=== PATIENT | female | born 1955 | race Caucasian/White ===

== ENCOUNTER 2018-10-23 09:01 | Inpatient (IN) | payer BC ==
[2018-10-23] MEDS ORDERED: NS 0.9% 1000 ML** 1,000 ML IV ONE (09:11)
--- NOTE | 2018-10-23 09:13 | ED ---
Complex/Multi-Sys Presentation - History Of Current Complaint Chief Complaint: EDFever Time Seen by Provider: 10/23/18 09:10 Hx Obtained From: Patient - Allergies/Home Medications Allergies/Adverse Reactions: Allergies Allergy/AdvReac Type Severity Reaction Status Date / Time enviromental Allergy Difficulty Uncoded 07/13/18 09:57 Breathing/Wheezing PMH/Surg Hx/FS Hx/Imm Hx Infectious Disease History: No Infectious Disease History: Denies: Traveled Outside the [place] in Last 30 Days - Social History Alcohol Use: None Substance Use Type: Reports: None Smoking Status (MU): Never Smoked Tobacco Have You Smoked in the Last Year: No Physical Exam Vital Signs On Initial Exam: Initial Vitals Temp Pulse Resp BP Pulse Ox 100.3 F 144 18 140/83 97 10/23/18 09:03 10/23/18 09:03 10/23/18 09:03 10/23/18 09:03 10/23/18 09:03 Diagnostics - Vital Signs Vital Signs Temp Pulse Resp BP Pulse Ox 10/23/18 09:03 100.3 F 144 18 140/83 97 - Laboratory Lab Statement: Any lab studies that have been ordered have been reviewed, and results considered in the medical decision making process. Discharge - Discharge Plan Referrals: Pema Melton [Primary Care Provider] -
[2018-10-23] MEDS ORDERED: NS 0.9% 1000 ML** 1,000 ML IV.FLUID IV ONE (09:20)
[2018-10-23] MEDS ORDERED: Piperacillin/Tazobac ADVAN(*) 3.375 GM in NS 0.9% 100 ML* 100 ML IVPB ONE ×2 (09:20→10:35)
[2018-10-23 09:40] LABS: Hematocrit 40 % (35-47); Hemoglobin 13.2 g/dl (12.0-16.0); Mean Corpuscular HGB Conc 33 g/dl (31-36); Mean Corpuscular Hemoglobin 28 pg (27-31); Mean Corpuscular Volume 84 fL (80-97); Red Blood Count 4.72 10^6/ul (4.00-5.40); Red Cell Distribution Width 15 % (10.5-15); White Blood Count 3.1 10^3/ul (3.5-10.8)
--- NOTE | 2018-10-23 09:44 | ED ---
HPI Febrile Illness - HPI Summary HPI Summary: This patient is a 63 year old F presenting to [facility] accompanied by her with a chief complaint of fever, urinary frequency, and increased general weakness. Patient is referred to the [facility] ED by Lena Thompson due to fever and to eval for neutropenia after first chemo for breast cancer. Patient was diagnosed with breast CA in Jul 2018, had lumpectomy, first started chemotherapy ( Doxorubicin and cyclophosphamide, q 2 week regimen) on 10/14/18. Neulasta taken the day after chemo. Pt does not what type of breast cancer or status of lymph nodes. Has a folder from Lena Thompson with much medical information. Pt has a power port in place. Patient reports recent fever beginning yesterday around 3pm with 100.5 at 1903, 100.9 2036, and 101.1 at 0836 this morning. Patient denies hematuria, dysuria, cough, SOB, headache, diarrhea, vomiting, and rash. Patient provided a [facility] number to contact ([phone]). - History of Current Complaint Chief Complaint: EDFever Time Seen by Provider: 10/23/18 09:10 Hx Obtained From: Patient, Family/Template Storage Clerk - Onset/Duration: Started Hours Ago Time of Onset: 15:00 - 10/22/18 Timing: Constant Temperature: 101.1 F - at home Initial Severity: Moderate Current Severity: Moderate Pain Intensity: 0 Pain Scale Used: 0-10 Numeric Aggravating Factors: Nothing Alleviating Factors: Nothing Associated Signs and Symptoms: Myalgia, Weakness, Other: - pt states she feels well - Risk Factors Serious Bacterial Infection Risk Factors: Chemotherapy - Additional Pertinent History Referred By: Other - Lena Thompson after their cancer care for pt - Allergy/Home Medications Allergies/Adverse Reactions: Allergies Allergy/AdvReac Type Severity Reaction Status Date / Time Adhesive Tape Allergy Rash Verified 10/23/18 09:18 [Tegaderm Dressing] enviromental Allergy Difficulty Uncoded 07/13/18 09:57 Breathing/Wheezing PMH/Surg Hx/FS Hx/Imm Hx Previously Healthy: Yes Cardiovascular History: Denies: Hx Hypertension Respiratory History: Denies: Hx Chronic Obstructive Pulmonary Disease (COPD) EENT History: Denies: Hx Deafness - Cancer History Cancer Type, Location and Year: breast CA 2018 Hx Chemotherapy: Yes - started 10/14/18 - Surgical History Surgery Procedure, Year, and Place: left lumpectomy Jul 2018, [facility] Infectious Disease History: No Infectious Disease History: Denies: Traveled Outside the [place] in Last 30 Days - Family History Known Family History: Positive: Other - breast cancer in sister Negative: Diabetes - Social History Occupation: Employed Full-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 Negative: dysuria, hematuria Positive: Myalgia Skin: Negative Neurological: Negative Psychological: Normal All Other Systems Reviewed And Are Negative: Yes Physical Exam - Summary Physical Exam Summary: Appearance: Ill-appearing, no pain distress, well-nourished Skin: Warm, color reflects adequate perfusion, dry Head: Normal Head/Face inspection, atraumatic Eyes: Conjunctiva clear ENT: Normal inspection Neck: Supple, no nodes, no JVD Respiratory: Lungs clear, normal breath sounds, no respiratory distress Cardio: Tachycardic rate regular rhythm, No murmur, pulses normal, brisk capillary refill Breasts: Stephy RN as cut off [employer], left breast post lumpectomy, well healed, no redness, non-tender Abdomen: Soft, nontender, no masses, non-tender, no guarding, no rebound, no CVAT Bowel sounds: Present Musculoskeletal: Strength Intact/ROM intact, no calf tenderness, no edema. Psychological: Normal Neuro: Alert, muscle tone normal, no focal deficit Triage Information Reviewed: Yes Vital Signs On Initial Exam: Initial Vitals Temp Pulse Resp BP Pulse Ox 100.3 F 144 18 140/83 97 10/23/18 09:03 10/23/18 09:03 10/23/18 09:03 10/23/18 09:03 10/23/18 09:03 Vital Signs Reviewed: Yes Diagnostics - Vital Signs Vital Signs Temp Pulse Resp BP Pulse Ox 10/23/18 09:29 139 16 134/89 97 10/23/18 09:15 135 98 10/23/18 09:03 100.3 F 144 18 140/83 97 - Laboratory Result Diagrams: 10/23/18 09:14 10/23/18 09:14 Lab Statement: Any lab studies that have been ordered have been reviewed, and results considered in the medical decision making process. - Radiology CXR Summary of Radiographic Findings: MINIMAL LINEAR ATELECTASIS VERSUS PLEUROPARENCHYMAL SCARRING OF THE LEFT LUNG. BASE. ED Physician has reviewed this report. - EKG 0928 Cardiac Rate: Tachycardia - 130 BPM EKG Rhythm: Sinus Tachycardia ST Segment: Non-Specific Ectopy: None Summary of EKG Findings: nml AV/IV CT, nml QTc, and left axis. No acute changes. Re-Evaluation - Re-Evaluation First Re-Evaluation Time: 10:09 Change: Unchanged - Patient still feels well. Pulse of 117 BPM. BP 112/80. remains with pt. Pt questioning antibiotics and admission. States she does not want to have antibiotics if she does not need them. Discussed neutropenic fever. Pt agrees to antibiotics and acetaminophen and admission. Course/Dx - Course Course Of Treatment: 63 year old F presenting to [facility] accompanied by her with a chief complaint of fever, urinary frequency, and increased general weakness. Patient is refered to ED by Lena Thompson with her c/o fever to eval for neutropenia after chemotherapy. Patient was diagnosed with breast CA in Jul 2018, first started chemotherapy (Doxorubicin and cyclophosphamide q2 week regimen) on 10/14/18. Neulasta taken the day after chemo. Patient reports recent fever beginning yesterday around 3pm with 100.5 at 1903, 100.9 2036, and 101.1 at 0836 this morning. Patient denies hematuria, dysuria, cough, SOB, headache, diarrhea, vomiting, and rash. Patient provided a [facility] number to contact ([phone]). Vitals during exam: HR 133 and BP 134/89. Sepsis protocol initiated with 30cc per kilogram and abx for sepsis for unknown cause due to immnosupression after chemo, neutropenic fever. Vancomycin and Zosyn were delayed in administration due to pt and questioning need for antibiotics because she felt so well. Neutropenic fever was discussed and pt and consented to IV antibiotics and admission. Patient given 650mg acetaminophen for temp 102 in ED. EKG reveals NSR at 130 BPM, nml AV/IV CT, nml QTc, and left axis. No acute changes. CXR reveals, "MINIMAL LINEAR ATELECTASIS VERSUS PLEUROPARENCHYMAL SCARRING OF THE LEFT LUNG. BASE." as per radiologist. Bloodwork reveals WBC 3.1, ban neutrophils% 2.7, absolute lymph .9 , lactic acid 2.5, C-reactive protein 36.76. Flu swabs are negative. UA does not indicate UTI. Case discussed with Dr. Langston who agrees to admit. Dr. Langston agrees to call [facility] and is given the phone number provided. Results discussed with patient and is agreeable to admission. - Febrile Illness Differential Diagnoses: Abd. Infection, Bacteremia, Cellulitis, Fever of Unknown Origin, Neoplasm, Pneumonia, Pyelonephritis, Sepsis - Diagnoses Provider Diagnoses: Sepsis, Neutropenic fever, Breast cancer in female - Provider Notifications Discussed Care Of Patient With: Heather Langston - hospitalist Time Discussed With Above Provider: 09:50 Instructed by Provider To: Admit As Inpatient - Critical Care Time Critical Care Time: 30-74 min - 30 minutes Discharge - Sign-Out/Discharge Documenting (check all that apply): Patient Departure - admit All imaging exams completed and their final reports reviewed: Yes - Discharge Plan Condition: Stable Disposition: ADMITTED TO [facility] - Billing Disposition and Condition Condition: STABLE Disposition: Admitted to [facility] - Attestation Statements Document Initiated by Scribe: Yes Documenting Scribe: Tiffany Garay Provider For Whom Kianna is Documenting (Include Credential): Hoa Marino MD Scribe Attestation: Tiffany Palmer, scribed for Hoa Marino MD on 10/24/18 at 0022. Scribe Documentation Reviewed: Yes Provider Attestation: The documentation as recorded by the Tiffany dee accurately reflects the service I personally performed and the decisions made by me, Hoa aMrino MD Status of Scribe Document: Viewed
[2018-10-23 09:48] LABS: Activated Partial Thrombo Time 32.3 seconds (26.0-36.3); INR 1.01 (0.77-1.02)
[2018-10-23 09:58] LABS: Albumin 4.6 g/dL (3.2-5.2); Albumin/Globulin Ratio 1.6 (1-3); C Reactive Protein 36.76 mg/L (<8.01); Calcium 9.4 mg/dL (8.6-10.3); EGFR African American 91.6 (>60); EGFR Non-African American 75.7 (>60); Globulin 2.9 g/dL (2-4); Potassium 3.5 mmol/L (3.5-5.0); Total Bilirubin 0.5 mg/dL (0.2-1.0); Total Protein 7.5 g/dL (6.4-8.9)
[2018-10-23] MEDS ORDERED: Vancomycin(*) 1,000 MG - ED ONCE IVPB ONE ×2 (10:00)
[2018-10-23] MEDS ORDERED: Vancomycin(*) 1,000 MG VIAL IVPB ONE (10:00)
[2018-10-23] MEDS ORDERED: Acetaminophen TAB* 325 MG PO ONE ×2 (10:13→10:59)
[2018-10-23] MEDS ORDERED: Vancomycin(*) 1,000 MG in NS 0.9% 250 ML* 250 ML IVPB ONE (10:35)
[2018-10-23] MEDS ORDERED: PROCHLORPERAZINE INJ 5 MG/ML 2 ML VIAL IV PRN (10:41)
[2018-10-23 10:43] LABS: Platelet Count Platelets clumped. 10^3/ul (150-450)
[2018-10-23 10:52] LABS: Immature Granulocytes 27 % (0-9); Lymphocytes % 21 %; Monocytes % 4 %; Neutrophil % 33 %; Variant Lymph % 8 % (0-6)
[2018-10-23] MEDS ORDERED: Zosyn per Pharmacy* NOTE FOLLOW UP SCH (11:00)
[2018-10-23] MEDS ORDERED: Vancomycin per Pharmacy* NOTE FOLLOW UP SCH (11:00)
[2018-10-23 11:25] LABS: ABS Neutrophils 1.86 10^3/ul (1.5-7.7)
[2018-10-23 11:27] LABS: ABS Eosinophils 0.22 10^3/ul (0-0.6)
[2018-10-23 12:06] LABS: Influenza A Molecular NEGATIVE (Negative); Influenza B Molecular NEGATIVE (Negative)
--- NOTE | 2018-10-23 12:09 | HP ---
CC: Pema Melton NP HISTORY AND PHYSICAL: DATE OF ADMISSION: 10/23/18 PRIMARY CARE PROVIDER: Pema Melton NP TIME OF EVALUATION: 10:15 a.m. CHIEF COMPLAINT: Fever. HISTORY OF PRESENT ILLNESS: Ms. Campos is a 63-year-old lady with a history of stage III breast adenocarcinoma, who is being treated at [facility]. Her first chemotherapy happened on October 14 she states that she was using Neulasta. She states that yesterday she woke up feeling well and in the afternoon she started to have some pascual ise followed by fever. She states that she the spent afternoon in bed hoping that the fever would ybarra bside, but this morning she was advised to come to the emergency room for further evaluation. She denies chest pain, cough, shortness of breath, nausea, vomiting, diarrhea, urinary complaints. S he also denies any skin lesions. PAST MEDICAL HISTORY: Stage III breast cancer, just recently started chemotherapy. We are awaiting f urther records from [facility]. MEDICATION LIST: Albuterol inhaler as needed for shortness of breath. ALLERGIES: Just ENVIRONMENTAL ALLERGIES and also to TEGADERM. FAMILY HISTORY: Mother of uterine cancer in her 80s. Father of prostate cancer in his 80s and sister had breast cancer in her 30s. SOCIAL HISTORY: The patient is a nurse. She denies alcohol, drugs, or tobacco use. Surrogate decis ion maker is her , Tammy Campos, phone number is [phone]. REVIEW OF SYSTEMS: A 14-point review of systems was performed and all the pertinent negative and pos itive findings are in the HPI. PHYSICAL EXAMINATION GENERAL: The patient is a well-built female, appears younger than stated age, sitting up in the ED s tretcher, not in acute distress. VITAL SIGNS: Temperature 101.2, heart rate is 137, respiratory rate is 16, oxygen saturation is 97% on room air, blood pressure 134/89. HEENT: Pupils are equal. Moist mucous membranes. CHEST: Breath sounds bilaterally with no added sounds. CVS: Normal S1 and S2. Regular rate and rhythm. There is a port to the right chest wall. ABDOMEN: Soft, nontender, nondistended. Bowel sounds are present. EXTREMITIES: No edema. SKIN: No rashes, no open areas on her hands or feet. NEURO: She is alert and oriented x3. Able to move all 4 extremities. LABORATORY AND IMAGING DATA: The patient had a CBC that showed WBC of 3.1, hemoglobin of 13.2, cammy tocrit of 40, platelets were clumped. INR was 1. Chemistry showed a sodium of 137, potassium 3.5, ch loride of 102, bicarb of 25, BUN of 10, creatinine of 0.7, glucose of 106, calcium of 9.4. LFTs were normal. Lactic acid was 2.5. CRP was 36. No urinalysis was sent in the emergency room so far. Chest x-ray showed minimal linear atelectasis versus pleural parenchymal scarring of the left lung ba se as per Dr. Pinto. I do not see any acute infiltrate on this film. EKG done October 23 at 9:28 a.m. shows sinus tachycardia at 130 beats per minute with no ST-T shaikh ges. There is no prior EKG to compare. There is suggestion of RSR in V1 and V2. ASSESSMENT AND PLAN: Mrs. Campos is a 63-year-old lady with a past medical history of stage III breast cancer, who underwent her first chemotherapy on October 14 that presented to the emergency room with fever and found to have severe sepsis secondary to neutropenic fever. 1. Severe sepsis. The patient meets sepsis criteria with leukopenia, tachycardia, and fever. The s ource is neutropenic fever. She will be admitted to the telemetry floor. We are going to continue fluid resuscitation. She will be treated empirically with vancomycin and Zosyn. Blood cultures were sent in emergency room. She already received her first dose of Zosyn in the ED and she will get dose of vanco next. Blood cultur es were sent and her first lactic acid is 2.5. She received her fluid bolus and we are going to continue fluid resuscitation with LR. 2. Neutropenic fever. The patient's WBCs is 3.1, the differential is still pending at the time of t his dictation. I called Lena Thompson at [phone], and I am waiting for their provider to call me back to give me more information. As described above, the patient will be continued on broad-spectrum antibiotics (vancomycin, Zosyn) e mpirically and we will follow culture results. Influenza rapid test was also ordered in the emergenc y room. 3. DVT prophylaxis. The patient has a score of 4 on DVT prophylaxis Risk Assessment Guide and she w ill receive subcutaneous Lovenox. 4. Code status is full. TIME SPENT: Approximately 50 minutes were spent with patient interview, medical records review, phys ical examination to complete the admission; more than half of this time was spent [id number] with t he patient and coordination of care. [id number]/[facility] #: [id number]
[2018-10-23 12:53] LABS: Urine Appearance Clear; Urine Bilirubin Negative (Negative); Urine Blood Negative (Negative); Urine Color Yellow; Urine Glucose Negative (Negative); Urine Ketones Negative (Negative); Urine Nitrite Negative (Negative); Urine Protein Negative (Negative); Urine Specific Gravity 1.014 (1.010-1.030); Urine Urobilinogen Negative (Negative)
[2018-10-23] MEDS: Enoxaparin(*) 40 MG/0.4 ML SYR SUBCUT SCH (12:57)
[2018-10-23] MEDS: ZOSYN 3.375 GM Q8H per EXTENDED INFUSION IVPB SCH ×4 (13:26→21:55)
[2018-10-23] MEDS: Lactated Ringers 1000 ML Bag* 1,000 ML IV SCH ×2 (13:26→20:13)
--- NOTE | 2018-10-23 15:40 | PN ---
Sepsis Event Evaluation Date of Evaluation: 10/23/18 Time of Evaluation: 15:00 Current Stage of Sepsis: Severe Sepsis Vital Signs - Last 12 Hours: Vital Signs - 12 hr Temp Pulse Resp BP Pulse Ox 10/23/18 12:33 101.0 F 106 16 116/74 96 10/23/18 12:30 98.6 F 110 26 122/71 96 10/23/18 12:00 107 15 96 10/23/18 11:59 106 15 116/74 96 10/23/18 11:29 107 16 122/80 96 10/23/18 11:00 108 16 97 10/23/18 10:59 110 16 129/81 97 10/23/18 10:58 101.0 F 10/23/18 10:29 110 21 133/86 98 10/23/18 10:00 128 17 97 10/23/18 09:59 132 16 112/80 98 10/23/18 09:58 101.2 F 10/23/18 09:29 139 16 134/89 97 10/23/18 09:15 135 98 10/23/18 09:03 100.3 F 144 18 140/83 97 Lactic Acid: 10/23/18 10/23/18 09:14 13:15 Lactic Acid 2.5 H* 2.3 H* - Cardiopulmonary Exam Capillary Refill: Immediate Respiratory: Symmetrical Chest Expansion and Respiratory Effort, Clear to Auscultation Cardiovascular: NL Sounds; No Murmurs; No JVD, RRR - Peripheral Pulse Exam Radial Pulses: Bilateral Normal Pedal Pulses: Bilateral Normal Posterior Tibial Pulse: Bilateral Normal Femoral Pulses: Bilateral Normal Popliteal Pulses: Bilateral Normal - Skin Exam Skin Exam: Normal Turgor - [place] Coma Scale Best Eye Response: 4 - Spontaneous Best Motor Response: 6 - Obeys Commands Best Verbal Response: 5 - Oriented Coma Scale Total: 15 Assess/Plan/Problems-Billing Assessment: Severe sepsis secondary to neutropenic fever in patient with breast CA undergoing chemotherapy. Continue current management.
[2018-10-23] MEDS ORDERED: Ondansetron ODT TAB* 4 MG SL PRN (18:06)
[2018-10-23] MEDS: Vancomycin(*) 1,000 MG in NS 0.9% 250 ML* 250 ML IVPB SCH (18:08)
[2018-10-23 20:09] LABS: Erythrocyte Sed Rate 13 mm/Hr (0-30)
[2018-10-24] MEDS: Vancomycin(*) 1,000 MG in NS 0.9% 250 ML* 250 ML IVPB SCH ×3 (02:04→18:17)
[2018-10-24] MEDS: Lactated Ringers 1000 ML Bag* 1,000 ML IV SCH ×4 (03:05→23:53)
[2018-10-24 05:34] LABS: Hematocrit 29 % (35-47); Hemoglobin 9.9 g/dl (12.0-16.0); Mean Corpuscular HGB Conc 34 g/dl (31-36); Mean Corpuscular Hemoglobin 28 pg (27-31); Mean Corpuscular Volume 83 fL (80-97); Red Blood Count 3.49 10^6/ul (4.00-5.40); Red Cell Distribution Width 15 % (10.5-15); White Blood Count 4.5 10^3/ul (3.5-10.8)
[2018-10-24 06:01] LABS: Albumin 3.1 g/dL (3.2-5.2); Albumin/Globulin Ratio 1.7 (1-3); BUN/Creatinine Ratio 9.2 (8-20); C Reactive Protein 61.56 mg/L (<8.01); Calcium 7.7 mg/dL (8.6-10.3); EGFR African American 111.4 (>60); EGFR Non-African American 92.1 (>60); Globulin 1.8 g/dL (2-4); Potassium 3.4 mmol/L (3.5-5.0); Total Bilirubin 0.3 mg/dL (0.2-1.0); Total Protein 4.9 g/dL (6.4-8.9)
[2018-10-24] MEDS: ZOSYN 3.375 GM Q8H per EXTENDED INFUSION IVPB SCH ×6 (06:02→20:00)
[2018-10-24 06:17] LABS: Platelet Count 66 10^3/ul (150-450)
[2018-10-24 06:22] LABS: Immature Granulocytes 12 % (0-9); Lymphocytes % 9 %; Metamyelocytes % 4 % (0-2); Monocytes % 7 %; Myelocytes % 1 % (0-1); Neutrophil % 67 %; Variant Lymph % 3 % (0-6)
[2018-10-24 06:23] LABS: ABS Basophils 0 10^3/ul (0-0.2); ABS Eosinophils 0.1 10^3/ul (0-0.6); ABS Lymphocytes 0.5 10^3/ul (1.0-4.8); ABS Monocytes 0.4 10^3/ul (0-0.8); ABS Neutrophils 3.5 10^3/ul (1.5-7.7); ABS Nucleated RBC 0 10^3/ul; Microcytosis 2+
[2018-10-24] MEDS ORDERED: Potassium Chlor TAB* 20 MEQ TAB.ER PO ONE (08:20)
[2018-10-24] MEDS: Albuterol HFA INHALER* 8 gm MDI INH SCH (08:26)
[2018-10-24] MEDS ORDERED: Vancomycin Trough Check NOTE FOLLOW UP ONE (09:30)
[2018-10-24] MEDS: Enoxaparin(*) 40 MG/0.4 ML SYR SUBCUT SCH (10:44)
[2018-10-24 11:24] LABS: Platelet Count, Citrated 61 10^3/ul (150-450)
--- NOTE | 2018-10-24 11:30 | PN ---
Subjective Date of Service: 10/24/18 Interval History: HOSPITALIST PROGRESS NOTE Patient seen and examined at bedside. Care reviewed and d/w Stacy Grajeda RN. She feels better today. No fever so far, no N/V. Appetite is poor, but tolerating diet. Family History: Unchanged from Admission Social History: Unchanged from Admission Past Medical History: Unchanged from Admission Objective Active Medications: Albuterol (Ventolin Hfa Inhaler*) 1 puff INH DAILY [facility] Last Admin: 10/24/18 08:26 Dose: Not Given Enoxaparin Sodium (Lovenox(*)) 40 mg SUBCUT Q24H [facility] Last Admin: 10/24/18 10:44 Dose: 40 mg Lactated Ringer's (Lactated Ringers 1000 Ml Bag*) 1,000 mls @ 150 mls/hr IV PER RATE [facility] Last Admin: 10/24/18 09:56 Dose: 150 mls/hr Piperacillin Sod/Tazobactam (Sod 3.375 gm/ Sodium Chloride) 100 mls @ 25 mls/ hr IVPB Q8H [facility] Last Admin: 10/24/18 06:02 Dose: 25 mls/hr Vancomycin HCl 1,000 mg/ (Sodium Chloride) 250 mls @ 166.667 mls/hr IVPB Q8H [facility] Last Admin: 10/24/18 10:43 Dose: 166.667 mls/hr Ondansetron HCl (Zofran Odt Tab*) 4 mg SL Q6H PRN PRN Reason: NAUSEA/VOMITING Pharmacy Consult (Vancomycin Per Pharmacy*) 1 note FOLLOW UP .VANC PER PHARMACY [facility] Pharmacy Consult (Zosyn Per Pharmacy*) 1 note FOLLOW UP .ZOSYN PER PHARMACY [facility] Prochlorperazine Edisylate (Compazine Inj*) 5 mg IV Q6H PRN PRN Reason: NAUSEA/VOMITING Vital Signs - 8 hr 10/24/18 10/24/18 10/24/18 06:30 07:22 11:11 Temperature 98.0 F 99.3 F Pulse Rate 83 101 Respiratory 18 18 15 Rate Blood Pressure 99/46 107/59 (mmHg) O2 Sat by Pulse 94 97 95 Oximetry Oxygen Devices in Use Now: None Appearance: Pleasant lady sitting up in bed in NAD. Eyes: No Scleral Icterus Ears/Nose/Mouth/Throat: Mucous Membranes Moist Neck: Trachea Midline Respiratory: Symmetrical Chest Expansion and Respiratory Effort, Clear to Auscultation Cardiovascular: NL Sounds; No Murmurs; No JVD, RRR Abdominal: NL Sounds; No Tenderness; No Distention Neurological: Alert and Oriented x 3, NL Muscle Strength and Tone Result Diagrams: 10/24/18 05:11 10/24/18 05:11 Assess/Plan/Problems-Billing Assessment: Mrs Quinn is a 63yo F with PMH of stage III breast CA, s/p 1st chemo , admitted with severe sepsis secondary to neutropenic fever. - Patient Problems (1) Severe sepsis Comment: - Present on admission with fever, tachycardia, leukopenia, lactic acidosis. - Resolved. - Source was neutropenic fever. (2) Neutropenic fever Comment: - Improving. - WBC up to 4.5 today. - Cultures show no growth so far. - Continue Vanco/Zosyn, but if she remains afebrile and cultures remain negative , may d/c in AM on Levofloxacin. (3) Stage III breast cancer in female Comment: - Will f/u at [facility] to resume chemo. (4) Thrombocytopenia Comment: - No signs of bleeding, likely secondary to chemo - monitor. (5) DVT prophylaxis Comment: - Lovenox and SCDs. (6) Full code status Status and Disposition: Inpatient.
[2018-10-25] MEDS: Vancomycin(*) 1,000 MG in NS 0.9% 250 ML* 250 ML IVPB SCH ×2 (01:47→10:23)
[2018-10-25] MEDS ORDERED: Lactated Ringers 1000 ML Bag* 1,000 ML IV SCH (03:38)
[2018-10-25] MEDS: ZOSYN 3.375 GM Q8H per EXTENDED INFUSION IVPB SCH ×2 (04:00)
[2018-10-25 06:32] LABS: BUN/Creatinine Ratio 5.9 (8-20); EGFR African American 105.7 (>60); EGFR Non-African American 87.4 (>60); Potassium 3.5 mmol/L (3.5-5.0)
[2018-10-25] MEDS: Albuterol HFA INHALER* 8 gm MDI INH SCH (07:38)
[2018-10-25 07:39] LABS: ABS Basophils 0 10^3/ul (0-0.2); ABS Eosinophils 0.1 10^3/ul (0-0.6); ABS Lymphocytes 0.5 10^3/ul (1.0-4.8); ABS Monocytes 0.6 10^3/ul (0-0.8); ABS Neutrophils 7.6 10^3/ul (1.5-7.7)
[2018-10-25 07:42] LABS: Immature Granulocytes 9 % (0-9); Lymphocytes % 5 %; Metamyelocytes % 3 % (0-2); Monocytes % 6 %; Neutrophil % 80 %
[2018-10-25 07:43] LABS: ABS Neutrophils 7.8 10^3/ul (1.5-7.7); Hematocrit 31 % (35-47); Hemoglobin 10.4 g/dl (12.0-16.0); Mean Corpuscular HGB Conc 34 g/dl (31-36); Mean Corpuscular Hemoglobin 28 pg (27-31); Mean Corpuscular Volume 83 fL (80-97); Mean Platelet Volume 7.1 fL (7.4-10.4); Platelet Count 78 10^3/ul (150-450); Red Blood Count 3.72 10^6/ul (4.00-5.40); Red Cell Distribution Width 15 % (10.5-15); White Blood Count 8.8 10^3/ul (3.5-10.8)
[2018-10-25] MEDS: Enoxaparin(*) 40 MG/0.4 ML SYR SUBCUT SCH (10:22)
[2018-10-25 12:10] VITALS: BP 112/70
[2018-10-25] MEDS ORDERED: Levofloxacin TAB* 750 MG PO ONE (13:28)
--- NOTE | 2018-10-25 21:42 | DS ---
CC: Pema Melton NP; Dr. Verdin * DISCHARGE SUMMARY: DATE OF ADMISSION: 10/23/18 DATE OF DISCHARGE: 10/25/18 PRIMARY CARE PROVIDER: Pema Melton NP ONCOLOGIST: Dr. Verdin, oncologist at [facility]. DISCHARGE DIAGNOSES: 1. Neutropenic fever. 2. Severe sepsis. SECONDARY DIAGNOSIS: Stage III left breast cancer, status post lumpectomy, and recently started chemotherapy. MEDICATIONS: Albuterol HFA 1 puff inhaled as needed for shortness of breath. NEW MEDICATIONS: Levofloxacin 750 mg p.o. daily for 5 more days. HOSPITAL COURSE: Mrs. Campos is a 63-year-old female with a past medical history stated above that recently started her chemotherapy at [facility] on 10/14/18. She states that the day prior to admission she was feeling well. By the afternoon, she started to have malaise followed by fever and chills. She waited to see if the symptoms would resolve, but the next day as she still had fever, she came to the emergency room for further evaluation. She met criteria for severe sepsis on admission with fever, tachycardia, leukopenia, and lactic acid of 2.5. She was started on broad-spectrum antibiotics, received aggressive fluid resuscitation with improvement. Her initial white cell count was 3.1 with bandemia 27% and thrombocytopenia 66. The patient became afebrile, had resolution of her symptoms. Her white cell count recovered to 8.8 on the day of discharge, platelets are 78 on the day of discharge and hemoglobin is 10.4. Blood cultures show no growth. Influenza was negative. Urinalysis was normal. Chest x-ray showed no infiltrate. I did call [facility] and talked to Tiera, nurse practitioner for Dr. Verdin , and I informed her about the patient's admission. His recommendation was for 5 more days of Levaquin and follow up with him on 10/28/18. She was scheduled to have her second chemotherapy at that time and this will be performed, but they went to reevaluate her at that time. The patient is medically stable for discharge today and she was advised about signs and symptoms that should prompt her return to the emergency room. PHYSICAL EXAMINATION: Vital Signs: Temperature 97.5, heart rate is 97, respiratory rate is 20, oxygen saturation is 96% on room air, blood pressure is 112/70. General: The patient is a pleasant lady, sitting up in bed in no acute distress. CVS: Normal S1, S2. Regular rate and rhythm. Chest: Breath sounds bilaterally with no added sounds. Skin: There is no rash or open area. There are no oral mucosal lesions. Neuro: She is alert and oriented x3. She moves all 4 extremities. DIET: Regular diet. ACTIVITIES: As tolerated. DISPOSITION: To home. STATUS WHILE IN THE HOSPITAL: Inpatient. CONDITION AT THE TIME OF DISCHARGE: Fair. Please keep in mind this is a summarized version of this patient's hospital stay. If you need more information, please feel free to call me at [phone] or please obtain the full medical records. TIME SPENT: Approximately 45 minutes were spent to complete this discharge. [id number]/[facility] #: [id number] MTDD
[2018-10-27] MEDS ORDERED: Vancomycin Trough Check NOTE FOLLOW UP ONE (09:30)
== END 2018-10-25 15:13 | disposition home or self-care (01) | DRG 720 ==
LOC: ED 09:01 → MEDTELE 10:32
PROVIDERS: ADMIT Internal Medicine; ATTEND Internal Medicine
DX: A41.9 Sepsis, unspecified organism (principal); D70.9 Neutropenia, unspecified; R50.81 Fever presenting with conditions classified elsewhere; C50.919 Malignant neoplasm of unspecified site of unspecified female breast; D69.59 Other secondary thrombocytopenia; R06.02 Shortness of breath; T45.1X5A Adverse effect of antineoplastic and immunosuppressive drugs, initial encounter; Y92.9 Unspecified place or not applicable; Z79.51 Long term (current) use of inhaled steroids; Z88.8 Allergy status to other drugs, medicaments and biological substances; Z80.49 Family history of malignant neoplasm of other genital organs; Z80.42 Family history of malignant neoplasm of prostate; Z80.3 Family history of malignant neoplasm of breast
CPT/HCPCS: 36415; 71045; 80048; 80053; 80202; 81003; 82550; 83605; 83880; 84484; 85025; 85049; 85610; 85652; 85730; 86140; 87040; 93005; 99285; A9270-GY; J1642; J1650; J2543; J3370

== ENCOUNTER 2021-09-07 06:31 | Observation (INO) ==
[2021-09-07] MEDS ORDERED: Albuterol HFA INHALER 8 gm MDI INH ONE ×2 (07:19→11:33)
[2021-09-07] MEDS ORDERED: Dexamethasone IV 4 MG/ML VIAL 1 ml VIAL IV SLOW PU ONE (07:19)
[2021-09-07 07:54] LABS: Venous Bicarbonate HCO3 26.8 mmol/L (24-28)
[2021-09-07 08:10] LABS: ABS Eosinophils 0.2 10^3/ul (0-0.6); ABS Lymphocytes 0.5 10^3/ul (1.0-4.8); ABS Monocytes 0.6 10^3/ul (0-0.8); ABS Neutrophils 4.7 10^3/ul (1.5-7.7); Eosinophil % 3.3 %; Hematocrit 43 % (35-47); Hemoglobin 14.6 g/dL (12.0-16.0); Lymphocyte % 8.8 %; Mean Corpuscular HGB Conc 34 g/dL (31-36); Mean Corpuscular Hemoglobin 29 pg (27-31); Mean Corpuscular Volume 86 fL (80-97); Mean Platelet Volume 7.4 fL (7.4-10.4); Nucleated Red Blood Cells % 0.1; Platelet Count 170 10^3/uL (150-450); Red Blood Count 5.01 10^6 /uL (3.70-4.87); Red Cell Distribution Width 15 % (10-15); White Blood Count 6.1 10^3/uL (3.5-10.8)
[2021-09-07 08:25] LABS: Activated Partial Thrombo Time 40.3 seconds (26.0-38.0); INR 1.14 (0.86-1.15)
[2021-09-07 08:30] LABS: Albumin 4.8 g/dL (3.2-5.2); Albumin/Globulin Ratio 1.7 (1-3); C Reactive Protein 16.94 mg/L (<8.01); Calcium 9.5 mg/dL (8.6-10.3); Globulin 2.8 g/dL (2-4); Potassium 3.7 mmol/L (3.5-5.0); Total Protein 7.6 g/dL (6.4-8.9); eGFR CKD-EPI 79.3 (>60)
[2021-09-07] MEDS ORDERED: Iohexol 350 (CONTRAST) 500 ML MDV IV ONE (08:51)
[2021-09-07 08:54] LABS: Ferritin 104.6 ng/mL (11-307)
[2021-09-07] MEDS: Enoxaparin 40 MG/0.4 ML SYR SUBCUT SCH (17:36)
[2021-09-07] MEDS: Albuterol HFA INHALER 8 gm MDI INH SCH (19:54)
[2021-09-08] MEDS: Albuterol HFA INHALER 8 gm MDI INH SCH (00:59)
[2021-09-08] MEDS ORDERED: Albuterol HFA INHALER 8 gm MDI INH PRN (02:01)
[2021-09-08 06:16] LABS: ABS Eosinophils 0.1 10^3/ul (0-0.6); ABS Lymphocytes 0.9 10^3/ul (1.0-4.8); ABS Monocytes 0.7 10^3/ul (0-0.8); ABS Neutrophils 3.9 10^3/ul (1.5-7.7); Eosinophil % 1.1 %; Hematocrit 43 % (35-47); Hemoglobin 14.3 g/dL (12.0-16.0); Lymphocyte % 15.4 %; Mean Corpuscular HGB Conc 34 g/dL (31-36); Mean Corpuscular Hemoglobin 29 pg (27-31); Mean Corpuscular Volume 86 fL (80-97); Mean Platelet Volume 7.8 fL (7.4-10.4); Platelet Count 185 10^3/uL (150-450); Red Blood Count 4.93 10^6 /uL (3.70-4.87); Red Cell Distribution Width 15 % (10-15); White Blood Count 5.6 10^3/uL (3.5-10.8)
[2021-09-08 06:50] LABS: Calcium 9.4 mg/dL (8.6-10.3); Potassium 3.6 mmol/L (3.5-5.0); eGFR CKD-EPI 81.7 (>60)
[2021-09-08] MEDS: cefTRIAXone 1 gm/50 mL NS BAG 1 GM/50 ML BAG IVPB SCH (15:33)
[2021-09-08] MEDS: Enoxaparin 40 MG/0.4 ML SYR SUBCUT SCH (17:54)
[2021-09-09 06:11] LABS: ABS Eosinophils 0.1 10^3/ul (0-0.6); ABS Lymphocytes 1.2 10^3/ul (1.0-4.8); ABS Monocytes 0.7 10^3/ul (0-0.8); ABS Neutrophils 3.7 10^3/ul (1.5-7.7); Eosinophil % 0.9 %; Hematocrit 42 % (35-47); Hemoglobin 14.2 g/dL (12.0-16.0); Lymphocyte % 21.8 %; Mean Corpuscular HGB Conc 34 g/dL (31-36); Mean Corpuscular Hemoglobin 29 pg (27-31); Mean Corpuscular Volume 86 fL (80-97); Mean Platelet Volume 7.8 fL (7.4-10.4); Nucleated Red Blood Cells % 0.1; Platelet Count 175 10^3/uL (150-450); Red Blood Count 4.87 10^6 /uL (3.70-4.87); Red Cell Distribution Width 15 % (10-15); White Blood Count 5.7 10^3/uL (3.5-10.8)
[2021-09-09 06:28] LABS: Calcium 9.3 mg/dL (8.6-10.3); Magnesium 2.3 mg/dL (1.9-2.7); Potassium 3.7 mmol/L (3.5-5.0); eGFR CKD-EPI 77.1 (>60)
[2021-09-09] MEDS: cefTRIAXone 1 gm/50 mL NS BAG 1 GM/50 ML BAG IVPB SCH (15:15)
[2021-09-09 16:15] LABS: C Reactive Protein 7.65 mg/L (<8.01)
[2021-09-09] MEDS: Enoxaparin 40 MG/0.4 ML SYR SUBCUT SCH (18:10)
[2021-09-10 05:26] LABS: Potassium 3.6 mmol/L (3.5-5.0)
[2021-09-10 15:07] VITALS: BP 120/71
== END 2021-09-10 17:30 | disposition home or self-care (01) ==
LOC: ED 06:31 → EDHOLD 06:31 → SUATTDRO 17:09 → MED 19:32
PROVIDERS: ADMIT Nurse Practitioner; ATTEND Internal Medicine